=== PATIENT | female | born 1940 | race Caucasian/White ===

== ENCOUNTER → 2016-04-22 | Outpatient (CLI) | payer OTHER, MEDICARE | LOC: BMCIMAGING 08:34 | DX: Z12.31 Encounter for screening mammogram for malignant neoplasm of breast (principal) | CPT/HCPCS: G0202 ==

== ENCOUNTER → 2016-08-28 | Outpatient (CLI) | payer OTHER, MEDICARE ==
[~2016-08-28] MED LIST: IOPAMIDOL (ISOVUE 370) 100 ML BTL IV ONE
== END ==
LOC: FIMAGING 10:42
PROVIDERS: ATTEND Internal Medicine
DX: M79.604 Pain in right leg (principal); M79.89 Other specified soft tissue disorders; R78.89 Finding of other specified substances, not normally found in blood
CPT/HCPCS: 71275; Q9967

== ENCOUNTER → 2016-09-04 | Outpatient (CLI) | payer OTHER, MEDICARE | LOC: FIMAGING 13:49 | PROVIDERS: ATTEND Family Medicine | DX: M25.561 Pain in right knee (principal); M79.89 Other specified soft tissue disorders ==

== ENCOUNTER → 2016-09-04 | Outpatient (CLI) | payer OTHER, MEDICARE | LOC: BMCIMAGING 11:54 | PROVIDERS: ATTEND Family Medicine | DX: M11.261 Other chondrocalcinosis, right knee (principal); M25.861 Other specified joint disorders, right knee ==

== ENCOUNTER → 2017-01-20 | Outpatient (CLI) | payer OTHER, MEDICARE | LOC: BMCIMAGING 11:05 | PROVIDERS: ATTEND Internal Medicine | DX: D17.79 Benign lipomatous neoplasm of other sites (principal) ==

== ENCOUNTER → 2017-04-28 | Outpatient (CLI) | payer OTHER, MEDICARE | LOC: BMCIMAGING 11:20 | PROVIDERS: ATTEND Internal Medicine | DX: Z12.31 Encounter for screening mammogram for malignant neoplasm of breast (principal); Z80.3 Family history of malignant neoplasm of breast ==

== ENCOUNTER → 2018-05-11 | Outpatient (CLI) | payer OTHER, MEDICARE | LOC: BMCIMAGING 08:32 | PROVIDERS: ATTEND Internal Medicine | DX: Z12.31 Encounter for screening mammogram for malignant neoplasm of breast (principal); Z80.3 Family history of malignant neoplasm of breast ==

== ENCOUNTER → 2018-06-26 | Outpatient (CLI) | payer OTHER, MEDICARE | LOC: BMCIMAGING 11:02 | PROVIDERS: ATTEND Internal Medicine | DX: M54.9 Dorsalgia, unspecified (principal) ==

== ENCOUNTER → 2018-06-29 | Outpatient (CLI) | payer OTHER, MEDICARE | LOC: EMCIMAGING 13:52 | PROVIDERS: ATTEND Internal Medicine | DX: S22.080G Wedge compression fracture of T11-T12 vertebra, subsequent encounter for fracture with delayed healing (principal); M51.26 Other intervertebral disc displacement, lumbar region; M51.24 Other intervertebral disc displacement, thoracic region; M51.25 Other intervertebral disc displacement, thoracolumbar region; M48.061 Spinal stenosis, lumbar region without neurogenic claudication; M48.04 Spinal stenosis, thoracic region; M48.05 Spinal stenosis, thoracolumbar region; M46.96 Unspecified inflammatory spondylopathy, lumbar region; M46.94 Unspecified inflammatory spondylopathy, thoracic region; M46.95 Unspecified inflammatory spondylopathy, thoracolumbar region | CPT/HCPCS: 72146-PN ==

== ENCOUNTER → 2018-06-30 | Outpatient (CLI) | payer OTHER, MEDICARE | LOC: FIMAGING 13:31 ==

== ENCOUNTER 2018-07-05 08:25 | Day surgery (SDC) | payer OTHER, MEDICARE ==
[2018-07-05] MEDS ORDERED: NS 1,000 ML IV ONE (08:29)
[2018-07-05] MEDS ORDERED: DEXAMETHASONE 10 MG/ML VIAL IVP ONE (08:29)
[2018-07-05] MEDS ORDERED: MEPERIDINE 25 MG/ML SYR IVP PRN (08:29)
[2018-07-05] MEDS ORDERED: ALTEPLASE 2 MG VIAL IVP PRN (08:29)
[2018-07-05] MEDS ORDERED: FLUMAZENIL 0.5 MG/5 ML MDV IVP PRN (08:29)
[2018-07-05] MEDS ORDERED: fentaNYL 100 MCG/2 ML INJ IVP PRN (08:29)
[2018-07-05] MEDS ORDERED: HEPARIN 10,000 UNIT/10 ML MDV (1,000 UNIT/ML) IVP PRN (08:29)
[2018-07-05] MEDS ORDERED: GLUCAGON HCL 1 MG VIAL IVP PRN (08:29)
[2018-07-05] MEDS ORDERED: MIDAZOLAM 2 MG/2 ML VIAL IVP PRN (08:29)
[2018-07-05] MEDS ORDERED: ceFAZolin 2 GM/DEXTROSE 100 ML IV ONE (08:29)
[2018-07-05] MEDS ORDERED: PROTAMINE SULFATE 50 MG/5 ML VIAL IVP PRN (08:29)
[2018-07-05] MEDS ORDERED: NALOXONE HCL 0.4 MG/ML INJ IVP PRN (08:29)
[2018-07-05 09:41] LABS: PLATELET COUNT 258 10^3/uL (150-400)
--- NOTE | 2018-07-05 10:18 | PDPROPOC ---
Sedation Plan of Care ASA Classification: ASA 2 Mallampati Score: Class 2 Mallampati Reference Image:
--- NOTE | 2018-07-05 10:18 | PDRADPRE ---
Radiology History & Physical Indication for procedure: back pain Home medications: Cholecalciferol Vit D3 [Vitamin D3 2000 units] 2,000 units PO DAILY 11/14/12 [ Last Taken 08/13/13] Cyanocobalamin [Vitamin B12 (*)] 2,000 mcg PO HS 11/14/12 [Last Taken 07/04/18] Lisinopril [Zestril 40 mg (*)] 40 mg PO HS 11/14/12 [Last Taken 07/04/18] Niacin [Niacin 500 mg (*)] 500 mg PO HS 11/14/12 [Last Taken 07/04/18] amLODIPine BESYLATE [Norvasc 10 mg (*)] 10 mg PO DAILY 11/14/12 [Last Taken ] Simvastatin [Zocor 20 mg] 20 mg PO HS 05/11/13 [Last Taken 07/04/18] Calcium Carbonate [Oyster Shell Calcium 500 mg (*)] 500 mg PO BID 08/10/13 [ Last Taken 08/13/13] [place]-3 2,000 units PO DAILY 07/03/18 [Last Taken 07/04/18] VITAMIN E 1 tab PO DAILY 07/03/18 [Last Taken 07/04/18] Vesicare 5 mg PO BID 07/03/18 [Last Taken 07/04/18 22:00] Aspirin 81mg (*) 81 mg PO DAILY 07/05/18 [Last Taken 07/03/18] Centrum Chewables Adults Tab 1 tab PO DAILY 07/05/18 [Last Taken 07/04/18] Allergies/Adverse Reactions: No Known Allergies Allergy (Verified 07/03/18 19:02) Mental status: A&Ox3
[2018-07-05 10:38] LABS: INR 0.99 (0.83-1.16); PROTIME(PATIENT) 12.7 SEC (12.0-15.0)
[2018-07-05] MEDS ORDERED: LIDOCAINE 1% 300 MG/30 ML SDV ONE (11:12)
[2018-07-05] MEDS ORDERED: BUPIVACAINE 0.25% 30 ML SDV ONE (11:13)
[2018-07-05] MEDS ORDERED: BUPIVACAINE 0.5% 30 ML SDV ONE (11:14)
[2018-07-05] MEDS ORDERED: MIDAZOLAM 2 MG/2 ML VIAL ONE (11:43)
[2018-07-05] MEDS ORDERED: fentaNYL 100 MCG/2 ML INJ ONE (11:43)
[2018-07-05] MEDS ORDERED: ONDANSETRON DISINTEGRATING 4 MG TAB PO PRN (12:09)
[2018-07-05] MEDS ORDERED: ONDANSETRON 4 MG/2 ML VIAL IVP PRN (12:09)
--- NOTE | 2018-07-05 12:09 | PDRADPN ---
Radiology Procedure Note Date of Procedure: 07/05/18 Radiologist: Jeanine Montalvo Anesthesia: IV Sedation Pre-op Diagnosis: T12 fx Post-op Diagnosis: same Procedure: T12 kyphoplasty Inf/Abcess present in the surg proc area at time of surgery?: No
[2018-07-05] MEDS ORDERED: DEXAMETHASONE 10 MG/ML VIAL ONE (12:16)
[2018-07-05 13:50] VITALS: BP 119/70
== END 2018-07-05 14:15 | disposition home or self-care (01) ==
LOC: FIMAGING 08:25
PROVIDERS: ATTEND Radiology Diagnostic Radiology
PROC: BR151ZZ Fluoroscopy of Thoracic Facet Joint(s) using Low Osmolar Contrast (ICD-10-PCS; principal; 2018-07-05 12:30)
PROC: 0PS43ZZ Reposition Thoracic Vertebra, Percutaneous Approach (ICD-10-PCS; principal; 2018-07-05 12:30)
DX: S22.080A Wedge compression fracture of T11-T12 vertebra, initial encounter for closed fracture (principal); X58.XXXA Exposure to other specified factors, initial encounter; Z98.1 Arthrodesis status; Z96.641 Presence of right artificial hip joint
CPT/HCPCS: J0690; J1100; J2250; J2310; J3010